=== PATIENT | female | born 1980 | race Caucasian/White ===

== ENCOUNTER 2016-09-16 07:56 | Emergency (ER) | payer MEDICAID ==
[2012-03-13 19:14] VITALS: BMI 34.4
== END 2016-09-16 08:22 | disposition home or self-care (01) ==
LOC: D.ER 07:56
DX: M54.5 Low back pain (principal); G89.29 Other chronic pain; F17.200 Nicotine dependence, unspecified, uncomplicated

== ENCOUNTER 2016-09-19 18:33 | Emergency (ER) | payer MEDICAID ==
[2012-03-13 19:14] VITALS: BMI 34.4
[2016-09-19 19:09] LABS: BASOPHILS 0 % (0.0-2.0); EOSINOPHILS 0.4 % (0-7); HEMATOCRIT 39.7 % (36.0-48.0); HEMOGLOBIN 13.2 g/dL (12-16); IMMATURE GRANULOCYTES 0.2 % (0-5); LYMPHOCYTES 45.7 % (15-50); MCH 32.9 pg (26.0-34.0); MCHC 33.2 g/dL (31.0-37.0); MONOCYTES 6.5 % (2-11); NEUTROPHILS 47.2 % (40-80); PLATELET COUNT 225 10x3/uL (130-400); RBC 4.01 10x6/uL (4.00-5.40); WBC 8.5 10x3/uL (4.8-10.8)
[2016-09-19 19:31] LABS: ALBUMIN 3.5 g/dL (3.4-5.0); ALKALINE PHOSPHATASE 59 U/L (46-116); ALT (SGPT) 19 U/L (10-68); BILIRUBIN - TOTAL 0.39 mg/dL (0.2-1.3); CALC OSMOLALITY 283 mosm/kg (275-300); CALCIUM 8.9 mg/dL (8.5-10.1); CARBON DIOXIDE 23.4 mmol/L (21.0-32.0); CHLORIDE - SERUM 109 mmol/L (98-107); CREATININE - SERUM 0.8 mg/dL (0.6-1.3); GLUCOSE 94 mg/dL (74-106); POTASSIUM - SERUM 3.4 mmol/L (3.5-5.1); PROTEIN - SERUM 6.5 g/dL (6.4-8.2); SODIUM 143 mmol/L (136-145); UREA NITROGEN 9 mg/dL (7-18); eGFR NON AFRICAN AMERICAN 86 mL/min (90-120)
[2016-09-19 19:42] LABS: APPEARANCE HAZY (CLEAR); COLOR YELLOW (YELLOW); LEUKOCYTE ESTERASE TRACE (NEGATIVE)
[2016-09-19 19:43] LABS: BILIRUBIN NEGATIVE (NEGATIVE); GLUCOSE NEGATIVE (NEGATIVE); KETONE NEGATIVE (NEGATIVE); NITRITE POSITIVE (NEGATIVE); PROTEIN TRACE mg/dL (NEGATIVE); RED CELLS - URINE 0-5 /hpf (0-5); UROBILINOGEN NORMAL (NORMAL)
[2016-09-19 19:44] LABS: BACTERIA MANY /hpf (NONE SEEN); EPITHELIAL CELLS 0-5 /hpf (0-5); HYALINE CAST 0-5 /lpf (NONE SEEN); MUCUS <1+ /lpf (NONE SEEN)
[2016-09-19 19:45] LABS: UDS - AMPHET NEGATIVE QUAL (NEGATIVE); UDS - BARB NEGATIVE QUAL (NEGATIVE); UDS - BENZO NEGATIVE QUAL (NEGATIVE); UDS - COCAINE NEGATIVE QUAL (NEGATIVE); UDS - METH NEGATIVE QUAL (NEGATIVE); UDS - OPIATE POSITIVE QUAL (NEGATIVE); UDS - PCP NEGATIVE QUAL (NEGATIVE); UDS - THC POSITIVE QUAL (NEGATIVE)
== END 2016-09-19 20:49 | disposition home or self-care (01) ==
LOC: D.ER 18:33
PROVIDERS: Emergency Medicine; Nurse Practitioner Family
DX: N39.0 Urinary tract infection, site not specified (principal); R10.30 Lower abdominal pain, unspecified

== ENCOUNTER 2016-09-26 20:03 | Emergency (ER) | payer MEDICAID ==
[2012-03-13 19:14] VITALS: BMI 34.4
== END 2016-09-26 22:02 | disposition home or self-care (01) ==
LOC: D.ER 20:03
DX: J20.9 Acute bronchitis, unspecified (principal); M54.5 Low back pain; G62.9 Polyneuropathy, unspecified; C64.9 Malignant neoplasm of unspecified kidney, except renal pelvis; F17.200 Nicotine dependence, unspecified, uncomplicated

== ENCOUNTER 2016-10-16 07:37 | Emergency (ER) | payer MEDICAID ==
[2012-03-13 19:14] VITALS: BMI 34.4
== END 2016-10-16 09:09 | disposition home or self-care (01) ==
LOC: D.ER 07:37
DX: M54.30 Sciatica, unspecified side (principal); C64.9 Malignant neoplasm of unspecified kidney, except renal pelvis

== ENCOUNTER 2016-11-07 10:03 | Emergency (ER) | payer MEDICAID ==
[2012-03-13 19:14] VITALS: BMI 34.4
== END 2016-11-07 14:08 | disposition home or self-care (01) ==
LOC: D.ER 10:03
DX: S30.0XXA Contusion of lower back and pelvis, initial encounter (principal); W01.0XXA Fall on same level from slipping, tripping and stumbling without subsequent striking against object, initial encounter; Y93.89 Activity, other specified; Y92.89 Other specified places as the place of occurrence of the external cause; Z86.73 Personal history of transient ischemic attack (TIA), and cerebral infarction without residual deficits; M79.7 Fibromyalgia; F17.200 Nicotine dependence, unspecified, uncomplicated

== ENCOUNTER 2016-11-25 08:57 | Emergency (ER) | payer MEDICAID ==
[2012-03-13 19:14] VITALS: BMI 34.4
== END 2016-11-25 10:46 | disposition home or self-care (01) ==
LOC: D.ER 08:57
DX: M54.5 Low back pain (principal); S29.012A Strain of muscle and tendon of back wall of thorax, initial encounter; X58.XXXA Exposure to other specified factors, initial encounter; Y93.E9 Activity, other interior property and clothing maintenance; Y92.019 Unspecified place in single-family (private) house as the place of occurrence of the external cause; M79.7 Fibromyalgia; Z86.73 Personal history of transient ischemic attack (TIA), and cerebral infarction without residual deficits; C64.9 Malignant neoplasm of unspecified kidney, except renal pelvis; F17.200 Nicotine dependence, unspecified, uncomplicated

== ENCOUNTER 2016-12-14 10:05 | Emergency (ER) | payer MEDICAID ==
[2012-03-13 19:14] VITALS: BMI 34.4
== END 2016-12-14 11:47 | disposition home or self-care (01) ==
LOC: D.ER 10:05
DX: M25.552 Pain in left hip (principal); W18.2XXA Fall in (into) shower or empty bathtub, initial encounter; Y93.E1 Activity, personal bathing and showering; Y92.012 Bathroom of single-family (private) house as the place of occurrence of the external cause; M54.5 Low back pain; M79.7 Fibromyalgia; C64.9 Malignant neoplasm of unspecified kidney, except renal pelvis; F17.200 Nicotine dependence, unspecified, uncomplicated

== ENCOUNTER 2016-12-31 09:00 | Emergency (ER) | payer MEDICAID ==
[2012-03-13 19:14] VITALS: BMI 34.4
== END 2016-12-31 10:45 | disposition home or self-care (01) ==
LOC: D.ER 09:00
DX: S80.11XA Contusion of right lower leg, initial encounter (principal); W01.0XXA Fall on same level from slipping, tripping and stumbling without subsequent striking against object, initial encounter; Y93.89 Activity, other specified; Y92.89 Other specified places as the place of occurrence of the external cause; S93.401A Sprain of unspecified ligament of right ankle, initial encounter; M79.7 Fibromyalgia; C64.9 Malignant neoplasm of unspecified kidney, except renal pelvis; Z86.73 Personal history of transient ischemic attack (TIA), and cerebral infarction without residual deficits; F17.200 Nicotine dependence, unspecified, uncomplicated

== ENCOUNTER 2017-03-09 20:37 | Emergency (ER) | payer MEDICAID ==
[2012-03-13 19:14] VITALS: BMI 34.4
== END 2017-03-09 23:10 | disposition home or self-care (01) ==
LOC: D.ER 20:37
DX: G56.03 Carpal tunnel syndrome, bilateral upper limbs (principal); M79.642 Pain in left hand; M79.641 Pain in right hand; C64.9 Malignant neoplasm of unspecified kidney, except renal pelvis; Z86.73 Personal history of transient ischemic attack (TIA), and cerebral infarction without residual deficits; F17.200 Nicotine dependence, unspecified, uncomplicated

== ENCOUNTER 2017-05-03 21:36 | Emergency (ER) | payer MEDICAID ==
[2012-03-13 19:14] VITALS: BMI 34.4
[2017-05-03 22:31] LABS: BASOPHILS 0.2 % (0-2); EOSINOPHILS 0.2 % (0-7); HEMATOCRIT 34.6 % (36.0-48.0); HEMOGLOBIN 11.9 g/dL (12-16); IMMATURE GRANULOCYTES 0.2 % (0-5); LYMPHOCYTES 15.1 % (15-50); MCH 31.7 pg (26.0-34.0); MCHC 34.4 g/dL (31.0-37.0); MCV 92.3 fL (80.0-100.0); MEAN PLATELET VOLUME 10.7 fL (7.4-10.4); MONOCYTES 12.3 % (2-11); RBC 3.75 10x6/uL (4.00-5.40); RDW 12.4 % (11.5-14.5); WBC 12.1 10x3/uL (4.8-10.8)
[2017-05-03 22:32] LABS: PLATELET COUNT 173 10x3/uL (130-400)
[2017-05-03 22:45] LABS: ALBUMIN 3.1 g/dL (3.4-5.0); ALKALINE PHOSPHATASE 84 U/L (46-116); ALT (SGPT) 16 U/L (10-68); BILIRUBIN - TOTAL 0.38 mg/dL (0.2-1.3); CALC OSMOLALITY 280 mosm/kg (275-300); CALCIUM 8.4 mg/dL (8.5-10.1); CARBON DIOXIDE 22.5 mmol/L (21.0-32.0); CHLORIDE - SERUM 105 mmol/L (98-107); CREATININE - SERUM 0.8 mg/dL (0.6-1.3); GLUCOSE 116 mg/dL (74-106); POTASSIUM - SERUM 3.2 mmol/L (3.5-5.1); PROTEIN - SERUM 6.7 g/dL (6.4-8.2); SODIUM 140 mmol/L (136-145); UREA NITROGEN 14 mg/dL (7-18); eGFR NON AFRICAN AMERICAN 86 mL/min (90-120)
== END 2017-05-03 23:23 | disposition home or self-care (01) ==
LOC: D.ER 21:36
PROVIDERS: Physician Assistant Medical
DX: J06.9 Acute upper respiratory infection, unspecified (principal); Z85.528 Personal history of other malignant neoplasm of kidney; F17.200 Nicotine dependence, unspecified, uncomplicated

== ENCOUNTER 2017-11-07 20:46 | Emergency (ER) | payer MEDICAID ==
[2012-03-13 19:14] VITALS: BMI 34.4
== END 2017-11-08 00:37 | disposition home or self-care (01) ==
LOC: D.ER 20:46
DX: S61.412A Laceration without foreign body of left hand, initial encounter (principal); W26.0XXA Contact with knife, initial encounter; Y93.89 Activity, other specified; Y92.019 Unspecified place in single-family (private) house as the place of occurrence of the external cause

== ENCOUNTER 2018-01-31 12:24 | Emergency (ER) | payer MEDICAID ==
[2012-03-13 19:14] VITALS: BMI 34.4
== END 2018-01-31 15:38 | disposition home or self-care (01) ==
LOC: D.ER 12:24
DX: L03.115 Cellulitis of right lower limb (principal); Z85.528 Personal history of other malignant neoplasm of kidney; F17.200 Nicotine dependence, unspecified, uncomplicated

== ENCOUNTER 2018-03-22 03:27 | Emergency (ER) | payer MEDICAID ==
[~2018-03-22] VITALS: Ht 162.6 cm; Wt 56.8 kg
[2018-03-22 03:31] VITALS: Ht 162.6 cm; Wt 56.8 kg
[2018-03-22] MEDS ORDERED: NORCO 7.5/325 T1 TA1 PO (04:07)
[2018-03-22 04:36] VITALS: BP 119/81
== END 2018-03-22 04:30 | disposition home or self-care (01) ==
LOC: D.ER 03:27
DX: S09.90XA Unspecified injury of head, initial encounter (principal); W01.0XXA Fall on same level from slipping, tripping and stumbling without subsequent striking against object, initial encounter; Y93.89 Activity, other specified; Y92.012 Bathroom of single-family (private) house as the place of occurrence of the external cause; Z85.528 Personal history of other malignant neoplasm of kidney

== ENCOUNTER 2018-03-29 10:24 | Emergency (ER) | payer MEDICAID ==
[~2018-03-29] VITALS: Ht 162.6 cm; Wt 63.6 kg
[~2018-03-29 10:24] MED LIST: NORCO 7.5/325 T1 TA1 PO
[2018-03-29 10:28] VITALS: Ht 162.6 cm; Wt 63.6 kg
[2018-03-29] MEDS ORDERED: VOLTAREN75 MG PO (14:16)
[2018-03-29 14:50] VITALS: BP 121/77
== END 2018-03-29 14:52 | disposition home or self-care (01) ==
LOC: D.ER 10:24
DX: R09.1 Pleurisy (principal); R07.89 Other chest pain; Z86.73 Personal history of transient ischemic attack (TIA), and cerebral infarction without residual deficits; Z85.528 Personal history of other malignant neoplasm of kidney; F17.200 Nicotine dependence, unspecified, uncomplicated

== ENCOUNTER 2018-04-14 12:32 | Emergency (ER) | payer MEDICAID ==
[~2018-04-14] VITALS: Ht 162.6 cm; Wt 68.2 kg
[~2018-04-14 12:32] MED LIST changes: +VOLTAREN75 MG PO
[2018-04-14 12:54] VITALS: Ht 162.6 cm; Wt 68.2 kg
[2018-04-14] MEDS ORDERED: CYCLOBENZAPRINE10 MG PO (17:02)
[2018-04-14] MEDS ORDERED: PREDNISONE10 MG PO (17:02)
[2018-04-14] MEDS ORDERED: EC-NAPROSYN500 MG PO (17:02)
[2018-04-14 17:28] VITALS: BP 114/81
== END 2018-04-14 17:30 | disposition home or self-care (01) ==
LOC: D.ER 12:32
DX: S29.012A Strain of muscle and tendon of back wall of thorax, initial encounter (principal); W18.30XA Fall on same level, unspecified, initial encounter; Y93.89 Activity, other specified; Y92.019 Unspecified place in single-family (private) house as the place of occurrence of the external cause; S76.312A Strain of muscle, fascia and tendon of the posterior muscle group at thigh level, left thigh, initial encounter; M25.551 Pain in right hip; Z86.73 Personal history of transient ischemic attack (TIA), and cerebral infarction without residual deficits; F17.200 Nicotine dependence, unspecified, uncomplicated